=== PATIENT | female | born 1935 | race African-American/Black ===

== ENCOUNTER 2019-08-01 15:20 | Inpatient (IN) | payer OTHER, BC ==
[2019-08-01 15:34] VITALS: BMI 27.4
[2019-08-01 16:31] LABS: EOS % 1.2 % (0-4.5); HEMATOCRIT 34.5 % (32.4-45.2); MCH 26.5 pg (25.7-33.7); MCHC 32.6 g/dl (32.0-36.0); RBC 4.25 M/mm3 (3.60-5.2)
[2019-08-01 16:33] LABS: BASO % 2.6 % (0-2.0); HEMOGLOBIN 11.2 GM/dl (10.7-15.3); LYMPH % 27.5 % (8-40); MEAN CELL VOLUME 81.1 fl (80-96); MEAN PLT VOLUME 8.7 fl (7.5-11.1); NEUT % 62.7 % (42.8-82.8); PLATELET COUNT 184 K/MM3 (134-434); RDW 13.3 % (11.6-15.6); WHITE BLOOD COUNT 4.7 K/mm3 (4.0-10.8)
[2019-08-01 16:43] LABS: BILIRUBIN,TOTAL 0.6 mg/dl (0.2-1); CALCIUM 9.4 mg/dl (8.5-10); CREATININE 0.8 mg/dl (0.55-1.3); TOT PROT 6.9 g/dl (6.4-8.2)
[2019-08-01 17:44] LABS: N-TERMINAL BNP 68.3 pg/ml (5-450)
[2019-08-01] MEDS ORDERED: HEPARIN NA (PORCINE) 5,000 UNITS/ML 1ML VIAL ONE (21:51)
[2019-08-01] MEDS: HEPARIN NA (PORCINE) 5,000 UNITS/ML 1ML VIAL SQ SCH (21:59)
[2019-08-02] MEDS ORDERED: ACETAMINOPHEN 325 MG TABLET (FP) PO PRN (01:11)
[2019-08-02 07:25] LABS: BASO % 0.6 % (0-2.0); EOS % 2.1 % (0-4.5); HEMATOCRIT 33.9 % (32.4-45.2); HEMOGLOBIN 10.8 GM/dL (10.7-15.3); LYMPH % 36.5 % (8-40); MCH 26.8 pg (25.7-33.7); MCHC 31.9 g/dl (32.0-36.0); MEAN CELL VOLUME 84.1 fl (80-96); MEAN PLT VOLUME 9.2 fl (7.5-11.1); NEUT % 48.8 % (42.8-82.8); PLATELET COUNT 159 K/MM3 (134-434); RBC 4.03 M/mm3 (3.60-5.2); WHITE BLOOD COUNT 3.6 K/mm3 (4.0-10.0)
[2019-08-02 07:43] LABS: ALK PHOS 59 U/L (45-117); ANION GAP 4 MMOL/L (8-16); BILIRUBIN,TOTAL 0.5 mg/dL (0.2-1); BLOOD UREA NITROGEN 20.7 mg/dL (7-18); CALCIUM 8.4 mg/dL (8.5-10.1); CHLORIDE 112 mmol/L (98-107); CO2 29 mmol/L (21-32); CREATININE 0.7 mg/dL (0.55-1.3); GLUCOSE,RANDOM 81 mg/dL (74-106); MAGNESIUM 2.2 mg/dL (1.8-2.4); POTASSIUM 3.9 mmol/L (3.5-5.1); SGOT/AST 20 U/L (15-37); SGPT/ALT 17 U/L (13-61); SODIUM 146 mmol/L (136-145); TOT PROT 5.8 g/dl (6.4-8.2)
[2019-08-02] MEDS: HEPARIN NA (PORCINE) 5,000 UNITS/ML 1ML VIAL SQ SCH ×3 (08:33→21:10)
[2019-08-02] MEDS: CLOPIDOGREL BISULFATE 75 MG TABLET (FP) PO SCH ×2 (08:33→10:32)
[2019-08-02] MEDS: CHOLECALCIFEROL (VIT D3) 1,000 UNIT (25 MCG) TABLET PO SCH ×2 (08:33→10:32)
[2019-08-02] MEDS: LOSARTAN POTASSIUM 50 MG TABLET PO SCH ×2 (08:33→10:32)
[2019-08-02] MEDS: DONEPEZIL HCL 5 MG TABLET (FP) PO SCH ×2 (08:33→10:31)
[2019-08-02] MEDS: HYDROCHLOROTHIAZIDE 25 MG TABLET (FP) PO SCH ×2 (08:33→10:32)
[2019-08-03] MEDS: HEPARIN NA (PORCINE) 5,000 UNITS/ML 1ML VIAL SQ SCH ×2 (05:09→15:26)
[2019-08-03 06:53] LABS: BLOOD UREA NITROGEN 21.9 mg/dL (7-18); CALCIUM 9.2 mg/dL (8.5-10.1); CREATININE 0.8 mg/dL (0.55-1.3); POTASSIUM 3.8 mmol/L (3.5-5.1)
[2019-08-03] MEDS ORDERED: SODIUM CHLORIDE 1,000 ML IV SCH (08:00)
[2019-08-03] MEDS: CLOPIDOGREL BISULFATE 75 MG TABLET (FP) PO SCH (09:18)
[2019-08-03] MEDS: LOSARTAN POTASSIUM 50 MG TABLET PO SCH (09:18)
[2019-08-03] MEDS ORDERED: amLODIPine BESYLATE 5 MG TABLET (FP) PO SCH (10:00)
[2019-08-03] MEDS ORDERED: PNEUMOC 13-VAL CONJ-DIP CRM/PF 0.5 ML DISP.SYRIN IM ONE (11:00)
[2019-08-03] MEDS ORDERED: FLU VACCINE QUAD 60 MCG/0.5 ML (MDV 19-20) IM ONE (11:19)
[2019-08-03] MEDS ORDERED: FLU VACC QS2019-20(6MOS UP)/PF 60 MCG/0.5 ML SYRINGE IM ONE (12:00)
[2019-08-03] MEDS ORDERED: amLODIPine BESYLATE 5 MG TABLET (FP) PO ONE (14:34)
[2019-08-03 15:39] VITALS: BP 153/76; PULSE 57; TEMP 98.2
== END 2019-08-03 17:41 | disposition home or self-care (01) | DRG 309 ==
LOC: FER 15:20 → J4W 23:16
PROVIDERS: ADMIT Internal Medicine; ATTEND Internal Medicine
DX: R00.1 Bradycardia, unspecified (principal); E87.0 Hyperosmolality and hypernatremia; N17.9 Acute kidney failure, unspecified; B02.9 Zoster without complications; I10 Essential (primary) hypertension; F03.90 Unspecified dementia, unspecified severity, without behavioral disturbance, psychotic disturbance, mood disturbance, and anxiety; R21 Rash and other nonspecific skin eruption; E86.9 Volume depletion, unspecified
CPT/HCPCS: 36415; 71045-TC-FY; 80048; 80053; 80061; 83721; 83735; 83880; 84443; 84484; 85025; 86618; 90670; 93005; 93306-TC; 97116-GP; 97161-GP; 99285-25; J1644; U0003

== ENCOUNTER 2019-10-29 20:13 | Emergency (ER) | payer OTHER, BC ==
--- OUTSIDE RECORDS SUMMARY | 2019-10-29 20:21 | XMS ---
:1935 Author Organization [facility] Support Name Relationship Address Phone RE, RETIRED Unavailable Unavailable Unavailable RE Unavailable Unavailable Unavailable HORACE ÁLVAREZ DAUGHTER [address] [place] [address] HORACE ÁLVAREZ Child [address] [place] [address] Re-disclosure Warning The records that you are about to access may contain information from federally- assisted alcohol or drug abuse programs. If such information is present, then the following federally mandated warning applies: This information has been disclosed to you from records protected by federal confidentiality rules (42 CFR part 2). The federal rules prohibit you from making any further disclosure of this information unless further disclosure is expressly permitted by the written consent of the person to whom it pertains or as otherwise permitted by 42 CFR part 2. A general authorization for the release of medical or other information is NOT sufficient for this purpose. The Federal rules restrict any use of the information to criminally investigate or prosecute any alcohol or drug abuse patient.The records that you are about to access may contain highly sensitive health information, the redisclosure of which is protected by Article 27-F of the [facility] Public Health law. If you continue you may haveaccess to information: Regarding HIV / AIDS; Provided by facilities licensed or operated by the [facility] Office of Mental Health; or Provided by the [facility] Office for People With Developmental Disabilities. If such information is present, then the following [facility] mandated warning applies: This information has been disclosed to you from confidential records which are protected by state law. State law prohibits you from making any further disclosure of this information without the specific written consent of the person to whom it pertains, or as otherwise permitted by law. Any unauthorized further disclosure in violation of state law may result in a fine or senior care sentence or both. A general authorization for the release of medical or other information is NOT sufficient authorization for further disclosure. Insurance Providers Payer name Policy type Policy ID Covered Covered green party's Policy P ruma / Coverage green party ID relationship to [employer] type [employer] MEDICARE [id number] SP [id number] BC PPO [id number] SP [id number] Results ID Date Data Source [id number] 08/01/2019 06:15:00 PM EDT [facility] Name Value Range Interpretation Description Data Sup porting Code Source(s) Document(s ) SARS [facility] CORONAVIRUS 2 RNA This lab was ordered by FAYE orona [facility] and reported by [facility]. Procedure
--- NOTE | 2019-10-29 20:25 | PDOC ---
History of Present Illness - General Chief Complaint: Nausea/Vomiting Stated Complaint: DIZZY, NAUSEA, DIARRHEA Time Seen by Provider: 10/29/19 20:17 History Source: Patient Exam Limitations: No Limitations - History of Present Illness Initial Comments: 10/29/19 21:03 This is a 84-year-old female brought in by her family for evaluation of dizziness nausea and vomiting. Patient has a history of vertigo in the past. Patient said that her symptoms began this morning and every time she moves or tries to walk that she becomes dizzy and has vomited twice. Patient is also having some tinnitus. Allergies: as per nursing notes Past Medical History: none Social history: Lives with family. No smoking. No alcohol. No illicit drugs. Surgical history: None General: No fevers or chills, no weakness, no weight loss HEENT: No change in vision. No sore throat,. No ear pain CardioVascular: no chest discomfort. No shortness of breath Respiratory:No cough, or wheezing. Gastrointestinal: + nausea, + vomiting, diarrhea or constipation, No rectal bleeding Genitourinary: No dysuria, hematuria, or frequency Musculoskeletal: No joint or muscle pain or swelling Neurologic: No headache, + vertigo, no dizziness or loss of consciousness Psychiatric: nor depression Skin: No rashes or easy bruising Endocrine: no increased thirst or abnormal weight change Allergic: no skin or latex allergy All other systems reviewed and normal Exam: General: Well-nourished well-developed individual, no acute distress HEENT: Throat: Normal, tonsils normal, no erythema or exudate Neck: Supple, no meningeal signs, no lymphadenopathy Eyes::Pupils equal reactive and round, extraocular motion intact Chest: Nontender to palpation Cardiac: S1-S2 normal, regular rate and rhythm, no murmurs rubs or gallops, bradycardia Respiratory: Lungs clear to auscultation bilateral Abdomen: Soft, nondistended, normal bowel sounds, there is no tenderness on palpation diffusely Extremities: Warm, dry, no cyanosis, clubbing, or edema Skin: No rashes Neuro: Alert and oriented x3, CN II - XII intact, nonfocal exam with normal strength, normal sensation, normal reflexes, normal gait, Psych: Normal mood and affect 10/29/19 21:07 EKG shows sinus bradycardia at a rate of [address]-T wave changes 10/29/19 22:07 CAT scan was done and read as no acute intracranial pathology some chronic microvascular ischemic changes were noted otherwise normal Chest x-ray was normal. Patient feels much better on reevaluation pressure improved to patient able to ambulate without any difficulty or dizziness. Meclizine prescription sent to patient's pharmacy and she will be discharged home with her family Past History - Medical History Allergies/Adverse Reactions: Allergies Allergy/AdvReac Type Severity Reaction Status Date / Time No Known Allergies Allergy Verified 08/01/19 15:29 Home Medications: Ambulatory Orders Clopidogrel Bisulfate [Plavix] 75 mg PO DAILY 08/01/19 Losartan Potassium 100 mg PO DAILY 08/01/19 Amlodipine Besylate [Norvasc -] 10 mg PO DAILY #30 tablet 08/03/19 Meclizine HCl [Antivert -] 25 mg PO QID #28 tablet 10/29/19 COPD: No HTN: Yes Hypercholesterolemia: Yes Thyroid Disease: Yes - Surgical History Abdominal Surgery: Yes - Psycho-Social/Smoking History Smoking History: Never smoked Have you smoked in the past 12 months: No ED Treatment Course - LABORATORY CBC & Chemistry Diagram: 10/29/19 20:40 10/29/19 20:40 Discharge - Discharge Information Problems reviewed: Yes Clinical Impression/Diagnosis: Vertigo Condition: Fair Disposition: HOME - Admission No - Follow up/Referral - Patient Discharge Instructions Additional Instructions: Take meclizine 1 tablet as often as every 6 hours as needed for the dizziness. Return to the emergency department immediately with ANY new, persistent or worsening symptoms. Continue any medications as previously prescribed by your physician. You should follow up with your primary doctor as soon as possible regarding today's emergency department visit. . Please make sure your doctor reviews the results of your emergency evaluation. Thank you for coming to the Emergency Department today for your care. It was a pleasure to see you today. Please note that your evaluation is INCOMPLETE until you follow-up with your doctor. - Post Discharge Activity
[2019-10-29 20:28] VITALS: TEMP 97.6; BMI 25.7
[2019-10-29] MEDS ORDERED: MECLIZINE HCL 25 MG TABLET (FP) PO ONE (20:47)
[2019-10-29] MEDS ORDERED: ONDANSETRON 4 MG/2 ML VIAL IVPB ONE (20:47)
[2019-10-29] MEDS ORDERED: MECLIZINE HCL 25 MG TABLET (FP) ONE ×2 (20:51→21:28)
[2019-10-29] MEDS ORDERED: ONDANSETRON 4 MG/2 ML VIAL ONE (20:51)
[2019-10-29 21:12] LABS: BASO % 0.9 % (0-2.0); EOS % 1.5 % (0-4.5); HEMATOCRIT 38.6 % (32.4-45.2); HEMOGLOBIN 12.2 GM/dl (10.7-15.3); LYMPH % 19.7 % (8-40); MCH 26.5 pg (25.7-33.7); MCHC 31.6 g/dl (32.0-36.0); MEAN CELL VOLUME 83.9 fl (80-96); MEAN PLT VOLUME 8.8 fl (7.5-11.1); MONO % 7.6 % (3.8-10.2); NEUT % 70.3 % (42.8-82.8); PLATELET COUNT 236 K/MM3 (134-434); RDW 13.1 % (11.6-15.6)
[2019-10-29 21:20] LABS: ALBUMIN 4.1 g/dl (3.4-5.0); BILIRUBIN,TOTAL 0.7 mg/dl (0.2-1); CALCIUM 9.9 mg/dl (8.5-10); CREATININE 0.7 mg/dl (0.55-1.3); POTASSIUM 3.8 mmol/L (3.5-5.1); TOT PROT 6.9 g/dl (6.4-8.2)
[2019-10-29 21:58] VITALS: BP 176/64; PULSE 54
--- NOTE | 2019-10-30 11:43 | EKG ---
Test Reason : Blood Pressure : / mmHG Vent. Rate : 042 BPM Atrial Rate : 042 BPM P-R Int : 170 ms QRS Dur : 088 ms QT Int : 502 ms P-R-T Axes : 041 004 013 degrees QTc Int : 419 ms MARKED SINUS BRADYCARDIA ABNORMAL ECG WHEN COMPARED WITH ECG OF 01-AUG-2019 16:22, NO SIGNIFICANT CHANGE WAS FOUND Confirmed by JESSY ROCA MD ([id number]) on 10/30/2019 11:42:54 AM Referred By: Confirmed By:JESSY ROCA MD
== END 2019-10-29 22:13 | disposition home or self-care (01) ==
LOC: FER 20:13
PROC: 3E033GC Introduction of Other Therapeutic Substance into Peripheral Vein, Percutaneous Approach (ICD-10-PCS; principal; 2019-10-29)
DX: H81.10 Benign paroxysmal vertigo, unspecified ear (principal)
CPT/HCPCS: 36415; 70450-TC; 71045-TC-FY; 80053; 81003; 82550; 82553; 84484; 85025; 87086; 93005; 99285-25